=== PATIENT | male | born 1990 | race American Indian/Alaskan Native ===

== ENCOUNTER 2021-07-07 19:09 | Emergency (ER) | payer SELFPAY ==
[2021-07-07 21:02] VITALS: BP 115/78
[2021-07-07] MEDS ORDERED: IBUPROFEN 800 MG TAB PO ONE (22:03)
--- NOTE | 2021-07-07 22:06 | Emergency Department Report ---
ED General Adult HPI - General Chief complaint: Abdominal Pain Stated complaint: LEFT SIDED PAIN Time Seen by Provider: 07/07/21 22:01 Source: patient Mode of arrival: Ambulatory Limitations: No Limitations - History of Present Illness Initial comments: Patient 30-year-old male who presents for left lateral rib pain x2 days. Patient denies fall injury or trauma. There is no shortness of breath, there is no wheezing no stridor. There is no nausea no vomiting. There is been no fever or chills. Patient denies smoking patient denies substance. Patient advises pain described at 4/10 sharp exacerbated by inspiration and movement. Pain is relieved by nothing tried. Patient drove self to ED patient is alert oriented x3 amatory patient does not appear toxic at this time. Patient is tolerating p.o. intake without symptoms. Severity scale (0 -10): 0 - Related Data Previous Rx's Medication Instructions Recorded Last Taken Type Ibuprofen [Motrin 800 MG tab] 800 mg PO Q8HR PRN #30 tablet 02/22/21 Unknown Rx Naproxen Sodium [Naproxen Sodium 550 mg PO BID PRN #30 07/07/21 Unknown Rx 550mg] Allergies Allergy/AdvReac Type Severity Reaction Status Date / Time No Known Allergies Allergy Verified 02/22/21 18:51 ED Review of Systems ROS: Stated complaint: LEFT SIDED PAIN Other details as noted in HPI Constitutional: denies: chills, fever Eyes: denies: eye pain, eye discharge, vision change ENT: denies: ear pain, throat pain Respiratory: denies: cough, shortness of breath, wheezing Cardiovascular: denies: chest pain, palpitations Endocrine: no symptoms reported Gastrointestinal: denies: abdominal pain, nausea, diarrhea Genitourinary: denies: urgency, dysuria Musculoskeletal: other (Left rib pain) Skin: denies: rash, lesions Neurological: denies: headache, weakness, paresthesias Psychiatric: denies: anxiety, depression Hematological/Lymphatic: denies: easy bleeding, easy bruising ED Past Medical Hx - Past Medical History Previous Medical History?: No - Surgical History Past Surgical History?: No - Medications Home Medications: Home Medications Medication Instructions Recorded Confirmed Last Taken Type Ibuprofen [Motrin 800 MG tab] 800 mg PO Q8HR PRN #30 tablet 02/22/21 Unknown Rx Naproxen Sodium [Naproxen Sodium 550 mg PO BID PRN #30 03/02/22 Unknown Rx 550mg] ED Physical Exam - General Limitations: No Limitations General appearance: alert, in no apparent distress - Head Head exam: Present: atraumatic, normocephalic - Eye Eye exam: Present: normal appearance, EOMI Pupils: Present: normal accommodation - ENT ENT exam: Present: mucous membranes moist - Neck Neck exam: Present: normal inspection, full ROM. Absent: tenderness, lymphadenopathy - Respiratory Respiratory exam: Present: chest wall tenderness (Left lateral rib pain mid axillary line there is no crepitus no ecchymosis no step-off no deformity, lung sounds are clear throughout pain is reproducible to palpation). Absent: wheezes, rales, rhonchi, stridor, decreased breath sounds - Cardiovascular Cardiovascular Exam: Present: regular rate, normal rhythm, normal heart sounds. Absent: systolic murmur, diastolic murmur, rubs, gallop - GI/Abdominal GI/Abdominal exam: Present: soft, normal bowel sounds. Absent: distended, tenderness, guarding, rebound, rigid, bruit, hernia - Rectal Rectal exam: Present: deferred - Extremities Exam Extremities exam: Present: normal inspection, normal capillary refill. Absent: tenderness - Back Exam Back exam: Present: normal inspection, full ROM. Absent: CVA tenderness (R), CVA tenderness (L) - Neurological Exam Neurological exam: Present: alert, oriented X3, CN II-XII intact, normal gait - Expanded Neurological Exam Expanded Patient oriented to: Present: person, place, time Speech: Present: fluid speech Best Eye Response (Bruno): (4) open spontaneously Best Motor Response (Bruno): (6) obeys commands Best Verbal Response (Errol): (5) oriented Bruno Total: 15 - Psychiatric Psychiatric exam: Present: normal affect, normal mood - Skin Skin exam: Present: warm, dry, intact, normal color. Absent: rash ED Course Vital Signs 07/07/21 07/07/21 20:59 22:23 Temperature 98.3 F Pulse Rate 61 Respiratory 16 16 Rate Blood Pressure 115/78 [Right] O2 Sat by Pulse 100 Oximetry ED Medical Decision Making - Radiology Data Radiology results: report reviewed, image reviewed XR ribs UNI w PA chest 3+V LT INDICATION: rib pain left. COMPARISON: No relevant prior imaging study available. FINDINGS: No acute skeletal abnormality. No acute pulmonary or pleural findings. IMPRESSION: 1. No acute findings. Signer Name: Jai Juarez MD Signed: 07/07/2021 10:28 PM Workstation Name: [id number] Transcribed By: COLLEEN Dictated By: Jai Juarez MD Electronically Authenticated By: Jai Juarez MD Signed Date/Time: 07/07/212227 DD/ 26 TD/TT: - Medical Decision Making X-ray normal no fracture no soft tissue abnormality. Plan DC to home, NSAIDs as needed, primary care doctor in 2 to 3 days. Patient verbalized agreement understanding of same patient DC'd home in stable condition at this time. Critical care attestation.: If time is entered above; I have spent that time in minutes in the direct care of this critically ill patient, excluding procedure time. ED Disposition Clinical Impression: Rib pain on left side Disposition: HOME / SELF CARE / HOMELESS Is pt being admited?: No Does the pt Need Aspirin: No Condition: Stable Instructions: Chest Wall Pain, [id number] Additional Instructions: Take medications as prescribed. Follow-up with your doctor in 2 to 3 days. Re turn to emergency department should symptoms worsen. Prescriptions: Naproxen Sodium [Naproxen Sodium 550mg] 550 mg PO BID PRN #30 PRN Reason: pain Referrals: PRIMARY CARE, [Primary Care Provider] - 3-5 Days JULIO SINGER MD [Staff Physician] - 3-5 Days Forms: Work/School Release Form(ED) Time of Disposition: 23:29
--- NOTE | 2021-07-07 22:33 | XRay Report ---
XR ribs UNI w PA chest 3+V LT INDICATION: rib pain left. COMPARISON: No relevant prior imaging study available. FINDINGS: No acute skeletal abnormality. No acute pulmonary or pleural findings. IMPRESSION: 1. No acute findings. Signer Name: Jai Juarez MD Signed: 07/07/2021 10:28 PM Workstation Name: [id number]
== END 2021-07-07 23:47 | disposition home or self-care (01) ==
LOC: ED 19:09
DX: R07.81 Pleurodynia (principal)
CPT/HCPCS: 99283

== ENCOUNTER 2021-09-12 23:07 | Emergency (ER) | payer SELFPAY ==
[2021-09-13 01:43] LABS: Bacteria,Urine 1+ /HPF (Negative); Bilirubin,Urine NEG (Negative); Blood,Urine NEG (Negative); Color,Urine Yellow (Yellow); Mucus,Urine FEW /HPF; Protein,Urine <15 mg/dL mg/dL (Negative)
[2021-09-13 01:51] LABS: RBC,Urine < 1.0 /HPF (0.0-6.0)
[2021-09-13 02:06] LABS: Basophils # (Auto) 0.1 K/mm3 (0.0-0.1); Basophils % (Auto) 1.9 % (0.0-1.8); Eosinophils % (Auto) 0.9 % (0.0-4.3); Hematocrit 44.6 % (35.5-45.6); Hemoglobin 14.8 gm/dl (11.8-15.2); Lymphocytes # (Auto) 1.4 K/mm3 (1.2-5.4); Lymphocytes % (Auto) 36.3 % (13.4-35.0); Mean Corpuscular HGB Conc 33 % (32-34); Mean Corpuscular Volume 91 fl (84-94); Monocytes # (Auto) 0.2 K/mm3 (0.0-0.8); Monocytes % (Auto) 4.8 % (0.0-7.3); Platelet Count 210 K/mm3 (140-440); Red Blood Count 4.91 M/mm3 (3.65-5.03); Red Cell Distribution Width 13.1 % (13.2-15.2)
[2021-09-13 02:10] LABS: Alanine Aminotransferase 19 units/L (7-56); Albumin 4.7 g/dL (3.9-5); BUN/Creatinine Ratio 13; Blood Urea Nitrogen 13 mg/dL (9-20); Calcium 9.2 mg/dL (8.4-10.2); Hemolysis Index 12
[2021-09-13] MEDS ORDERED: FAMOTIDINE 20 MG TAB PO ONE (03:36)
[2021-09-13] MEDS ORDERED: IBUPROFEN 600 MG TAB PO ONE (03:36)
[2021-09-13] MEDS ORDERED: predniSONE 50 MG TAB PO ONE (03:36)
--- NOTE | 2021-09-13 04:00 | XRay Report ---
CHEST 2 VIEWS INDICATION / CLINICAL INFORMATION: LEFT RIB PAIN X1DAY. COMPARISON: 07/07/2021 FINDINGS: SUPPORT DEVICES: None. HEART / MEDIASTINUM: No significant abnormality. LUNGS / PLEURA: No significant pulmonary or pleural abnormality. No pneumothorax. ADDITIONAL FINDINGS: No significant additional findings. IMPRESSION: 1. No acute findings. Signer Name: Kervin Kincaid DO Signed: 09/13/2021 3:55 AM Workstation Name: [id number]
--- NOTE | 2021-09-13 04:20 | Emergency Department Report ---
ED General Adult HPI - General Chief complaint: Abdominal Pain Stated complaint: LT SIDE PAIN Source: patient Mode of arrival: Ambulatory Limitations: No Limitations - History of Present Illness Initial comments: Patient is a 31-year-old -Swedish male with no past medical history presents to the ED with complaint of acute onset persistent left lateral rib pain and left upper quadrant pain for the last 6 hours. Patient states that the pain has been constant and persistent with any movement or palpation or deep inhalation. Patient denies traumatic injury, fall, dizziness, syncope, hemoptysis, cough, shortness of breath, chest pain or heavy lifting, nausea and vomiting, back pain, traumatic injury, fever and chills MD Complaint: left lateral rib pain; LUQ pain -: Sudden, hour(s) (6) Location: chest (Left lateral chest wall and rib pain), abdomen (Left lower quadrant) Radiation: abdomen Severity scale (0 -10): 6 Quality: aching, sharp Consistency: constant Improves with: none Worsens with: movement Associated Symptoms: denies other symptoms, chest pain (Left lateral rib pain). denies: confusion, cough, diaphoresis, fever/chills, headaches, loss of appetite, malaise, nausea/vomiting, rash, seizure, shortness of breath, syncope, weakness Treatments Prior to Arrival: none - Related Data Previous Rx's Medication Instructions Recorded Last Taken Type Ibuprofen [Motrin 800 MG tab] 800 mg PO Q8HR PRN #30 tablet 02/22/21 Unknown Rx Naproxen Sodium [Naproxen Sodium 550 mg PO BID PRN #30 07/07/21 Unknown Rx 550mg] Famotidine [Pepcid] 20 mg PO BID #60 tablet 09/13/21 Unknown Rx Naproxen 500 mg PO Q12H PRN #24 tab 09/13/21 Unknown Rx Allergies Allergy/AdvReac Type Severity Reaction Status Date / Time No Known Allergies Allergy Verified 02/22/21 18:51 ED Review of Systems ROS: Stated complaint: LT SIDE PAIN Other details as noted in HPI Constitutional: denies: chills, fever Eyes: denies: eye pain, eye discharge, vision change ENT: denies: ear pain, throat pain Respiratory: denies: cough, shortness of breath, wheezing Cardiovascular: chest pain (Left lateral chest wall and rib pain). denies: palpitations Endocrine: no symptoms reported Gastrointestinal: abdominal pain (Left upper quadrant tenderness). denies: nausea, diarrhea Genitourinary: denies: urgency, dysuria Musculoskeletal: denies: back pain, joint swelling, arthralgia Skin: denies: rash, lesions Neurological: denies: headache, weakness, paresthesias Psychiatric: denies: anxiety, depression Hematological/Lymphatic: denies: easy bleeding, easy bruising ED Past Medical Hx - Medications Home Medications: Home Medications Medication Instructions Recorded Confirmed Last Taken Type Ibuprofen [Motrin 800 MG tab] 800 mg PO Q8HR PRN #30 tablet 02/22/21 Unknown Rx Naproxen Sodium [Naproxen Sodium 550 mg PO BID PRN #30 07/07/21 Unknown Rx 550mg] Famotidine [Pepcid] 20 mg PO BID #60 tablet 09/13/21 Unknown Rx Naproxen 500 mg PO Q12H PRN #24 tab 09/13/21 Unknown Rx ED Physical Exam - General Limitations: No Limitations General appearance: alert, in no apparent distress - Head Head exam: Present: atraumatic, normocephalic, normal inspection - Eye Eye exam: Present: normal appearance, PERRL, EOMI Pupils: Present: normal accommodation - ENT ENT exam: Present: normal exam, normal orophraynx, mucous membranes moist, TM's normal bilaterally, normal external ear exam - Neck Neck exam: Present: normal inspection, full ROM. Absent: tenderness - Respiratory Respiratory exam: Present: normal lung sounds bilaterally, chest wall tenderness (Palpable reproducible left lateral rib tenderness). Absent: respiratory distress, wheezes, rales, rhonchi, accessory muscle use, decreased breath sounds, prolonged expiratory - Cardiovascular Cardiovascular Exam: Present: normal rhythm, bradycardia, normal heart sounds. Absent: systolic murmur, diastolic murmur, rubs, gallop - GI/Abdominal GI/Abdominal exam: Present: soft, tenderness (Left upper quadrant tenderness), normal bowel sounds. Absent: guarding, rebound, organomegaly - Extremities Exam Extremities exam: Present: normal inspection, full ROM, normal capillary refill - Back Exam Back exam: Present: normal inspection, full ROM. Absent: tenderness, CVA tenderness (R), CVA tenderness (L), muscle spasm, paraspinal tenderness, vertebral tenderness - Neurological Exam Neurological exam: Present: alert, oriented X3, CN II-XII intact, normal gait, reflexes normal - Psychiatric Psychiatric exam: Present: normal affect, normal mood - Skin Skin exam: Present: warm, dry, intact, normal color. Absent: rash ED Course Vital Signs 09/12/21 23:52 Temperature 98.0 F Pulse Rate 44 L Respiratory 18 Rate Blood Pressure 123/77 O2 Sat by Pulse 100 Oximetry ED Medical Decision Making - Lab Data Result diagrams: 09/13/21 01:20 09/13/21 01:20 - Radiology Data Radiology results: report reviewed, image reviewed [facility] [address] [place] [address] XRay Report Signed Patient: BERTHA HITCHCOCK MR# : [id number] : 1990 Acct:[id number] Age/Sex: 31 / M ADM Date: 09/12/21 Loc: ED Attending Dr: Ordering Physician: ERIN METZGER Date of Service: 09/13/21 Procedure(s): XR chest routine 2V Accession Number(s): [id number] cc: ERIN METZGER Fluoro Time In Minutes: CHEST 2 VIEWS INDICATION / CLINICAL INFORMATION: LEFT RIB PAIN X1DAY. COMPARISON: 07/07/2021 FINDINGS: SUPPORT DEVICES: None. HEART / MEDIASTINUM: No significant abnormality. LUNGS / PLEURA: No significant pulmonary or pleural abnormality. No pneumoth orax. ADDITIONAL FINDINGS: No significant additional findings. IMPRESSION: 1. No acute findings. Signer Name: Kervin Kincaid DO Signed: 09/13/2021 3:55 AM Workstation Name: [id number] Transcribed By: TREY Dictated By: KERVIN KINCAID DO Electronically Authenticated By: KERVIN KINCAID DO Signed Date/Time: 09/13/21354 DD/ 4 TD/TT: - Medical Decision Making This is a 31-year-old -Swedish male with no past medical history presents to the ED with complaint of acute onset persistent left lateral rib pain and left upper quadrant pain for the last 6 hours. Patient states that the pain has been constant and persistent with any movement or palpation or deep inhalation. In the ED, patient is alert and oriented x3 and is not in any distress. Lab test results were reviewed and are all nonactionable. Chest x- ray showed no acute cardiopulmonary abnormalities or pneumonitis. Patient symptoms are likely musculoskeletal based on the history and physical exam findings as well as lab test results and imaging reports. Patient was treated for pain in the ED. On reevaluation, patient's pain is well controlled medication. Patient will discharge home on medications including antacids and was advised to follow-up with his primary care physician in 7 to 10 days for reevaluation or return to the ED immediately if symptoms get worse. - Differential Diagnosis GERD; muscle strain; costochondritis; Critical care attestation.: If time is entered above; I have spent that time in minutes in the direct care of this critically ill patient, excluding procedure time. ED Disposition Clinical Impression: Acute costochondritis GERD (gastroesophageal reflux disease) Qualifiers: Esophagitis presence: esophagitis presence not specified Qualified Code(s): K21.9 - Gastro-esophageal reflux disease without esophagitis Muscle strain of chest wall Qualifiers: Encounter type: initial encounter Qualified Code(s): S29.011A - Strain of muscle and tendon of front wall of thorax, initial encounter Disposition: 01 HOME / SELF CARE / HOMELESS Is pt being admited?: No Does the pt Need Aspirin: No Condition: Stable Instructions: Costochondritis, [id number], Muscle Strain, [id number], Heartburn, [id number] Additional Instructions: All lab test results are reviewed and are all nonactionable. Chest x-ray showed no acute cardiopulmonary abnormalities or pneumonitis. Your symptoms are l ikely musculoskeletal or due to GERD. Therefore take medication with food, drink plenty of fluids and follow-up with your primary care physician in 7 to 10 days for reevaluation. Return to the ED immediately if symptoms get worse. Prescriptions: Naproxen 500 mg PO Q12H PRN #24 tab PRN Reason: Pain , Severe (7-10) Famotidine [Pepcid] 20 mg PO BID #60 tablet Referrals: [facility] [Provider Group] - 7-10 days Forms: Work/School Release Form(ED) Time of Disposition: 04:23 Print Language: TELUGU
[2021-09-13 07:47] VITALS: BP 122/70
== END 2021-09-13 07:45 | disposition home or self-care (01) ==
LOC: ED 23:07
DX: S29.011A Strain of muscle and tendon of front wall of thorax, initial encounter (principal); M94.0 Chondrocostal junction syndrome [Tietze]; K21.9 Gastro-esophageal reflux disease without esophagitis; R10.12 Left upper quadrant pain; Z79.899 Other long term (current) drug therapy; X58.XXXA Exposure to other specified factors, initial encounter; Y93.89 Activity, other specified; Y92.89 Other specified places as the place of occurrence of the external cause; Y99.8 Other external cause status
CPT/HCPCS: 36415; 71046; 80053; 81001; 85025; 99284; J7512